=== PATIENT | female | born 1940 | race Caucasian/White ===

== ENCOUNTER 2017-06-25 08:32 | Inpatient (IN) ==
[2017-06-19 11:52] LABS: Basophils # (Auto) 0 K/mcL (0.0-0.3); Basophils % (Auto) 0.2 % (0.0-2.0); Eosinophils # (Auto) 0.3 K/mcL (0.0-0.7); Eosinophils % (Auto) 2.5 % (0.0-7.0); Granulocytes % (Auto) 89.6 % (38.0-78.0); Lymphocytes # (Auto) 0.6 K/mcL (1.5-4.8); Lymphocytes % (Auto) 4.5 % (15.5-49.0); Mean Cell Volume 94.1 fL (80.0-100.0); Mean Corpuscular HGB Conc 33.8 g/dL (31.0-36.0); Mean Corpuscular Hemoglobin 31.9 pg (26.0-34.0); Monocytes # (Auto) 0.4 K/mcL (0.1-0.9); Monocytes % (Auto) 3.2 % (1.0-12.0); Platelet Count 361 K/mcL (140-440); RBC 3.84 M/mcL (4.00-5.20); Red Cell Distribution Width 12.6 % (11.5-14.5)
[2017-06-19 11:57] LABS: Blood Urea Nitrogen 46 mg/dl (8-23)
[2017-06-19 12:11] LABS: Appearance,Urine HAZY; Bacteria,Urine FEW /hpf (0); Bilirubin,Urine NEG (NEG); Color,Urine YELLOW; Glucose,Urine (UA) NEGATIVE (NEG); Leukocyte Esterase,Urine 500 /uL (NEG); Mucus,Urine FEW /hpf (0); Other Casts,Urine FEW /lpf (0); Protein,Urine NEG (NEG); Specific Gravity,Urine 1.015 (1.000-1.035); Urine Blood NEG mg/dL (<0.03); Urine Hyaline Cast 2 /lpf (0-2); Urine RBC 1 /hpf (0-1); Urine Squamous Epithelial Cell 13 /hpf (0-4); Urine Transitional Epi Cells 1 /hpf (0-2); Urine WBC 10 /hpf (0-4); Urobilinogen,Urine NEG (NEG)
[~2017-06-25 08:32] MED LIST: CELECOXIB 200 MG CAPSULE PO SCH; PREGABALIN 75 MG CAPSULE PO SCH; ceFAZolin 1 GM VIAL IV SCH; oxyCODONE 10 MG TAB.ER.12H PO SCH
[2017-06-25] MEDS ORDERED: HEPARIN 20,000 UNIT/ML VIAL IR ONE (09:49)
[2017-06-25 10:59] LABS: Appearance,Urine CLEAR; Bilirubin,Urine NEG (NEG); Color,Urine YELLOW; Glucose,Urine (UA) NEGATIVE (NEG); Leukocyte Esterase,Urine NEG /uL (NEG); Protein,Urine NEG (NEG); Specific Gravity,Urine 1.015 (1.000-1.035); Urine Blood NEG mg/dL (<0.03); Urobilinogen,Urine NEG (NEG)
[2017-06-25] MEDS ORDERED: TRANEXAMIC ACID 1,000 MG/10 ML VIAL IV ONE ×2 (11:20→12:40)
[2017-06-25] MEDS ORDERED: PHENYLEPHRINE 10 MG/ML VIAL IV ONE (11:20)
[2017-06-25] MEDS ORDERED: PROPOFOL 200 MG/20 ML VIAL IV ONE (11:20)
[2017-06-25] MEDS ORDERED: LIDOCAINE HCL/PF 100 MG/5 ML SYRINGE IV ONE (11:20)
[2017-06-25] MEDS ORDERED: ONDANSETRON 4 MG/2 ML VIAL IV ONE (11:20)
[2017-06-25] MEDS ORDERED: ePHEDrine 50 MG/ML AMPUL IV ONE (11:20)
[2017-06-25] MEDS ORDERED: DEXAMETHASONE 10 MG/ML VIAL IV ONE (11:20)
[2017-06-25] MEDS ORDERED: GLYCOPYRROLATE 0.2 MG/ML VIAL IV ONE (11:20)
[2017-06-25] MEDS ORDERED: MIDAZOLAM 5 MG/5 ML VIAL IV ONE (11:20)
[2017-06-25] MEDS ORDERED: fentaNYL 100 MCG/2 ML VIAL IV ONE (11:20)
[2017-06-25] MEDS ORDERED: MEPERIDINE 50 MG/ML INJECTION IV PRN (12:18)
[2017-06-25] MEDS ORDERED: diphenhydrAMINE 50 MG/ML VIAL IV PRN (12:18)
[2017-06-25] MEDS ORDERED: ONDANSETRON 4 MG/2 ML VIAL IV PRN ×2 (12:18→12:40)
[2017-06-25] MEDS ORDERED: ePHEDrine 50 MG/ML AMPUL IV PRN (12:18)
[2017-06-25] MEDS ORDERED: METHOCARBAMOL 1,000 MG/10 ML VIAL IV PRN (12:18)
[2017-06-25] MEDS ORDERED: ACETAMINOPHEN 1,000 MG/100 ML BOTTLE IV ONE (12:18)
[2017-06-25] MEDS ORDERED: ATROPINE SULFATE 0.4 MG/ML VIAL IV PRN (12:18)
[2017-06-25] MEDS ORDERED: METOPROLOL TARTRATE 5 MG/5 ML VIAL IV PRN (12:18)
[2017-06-25] MEDS ORDERED: IPRATROPIUM/ALBUTEROL 3 ML AMPUL.NEB NEB PRN (12:18)
[2017-06-25] MEDS ORDERED: NALOXONE HCL 0.4 MG/ML VIAL IV PRN (12:18)
[2017-06-25] MEDS ORDERED: PROMETHAZINE 25 MG/ML VIAL IV PRN (12:18)
[2017-06-25] MEDS ORDERED: HYDROmorphone 2 MG/ML VIAL IV PRN (12:18)
[2017-06-25] MEDS ORDERED: FLUMAZENIL 0.1 MG/ML ML IV PRN (12:18)
[2017-06-25] MEDS ORDERED: LACTATED RINGERS 1,000 ML IV SCH (12:30)
[2017-06-25] MEDS ORDERED: FLEETS ADULT ENEMA PR PRN (12:40)
[2017-06-25] MEDS ORDERED: MAGNESIUM HYDROXIDE 30 ML ORAL.SUSP PO PRN (12:40)
[2017-06-25] MEDS ORDERED: POLYETHYLENE GLYCOL 3350 17 GM PACKET PO PRN (12:40)
[2017-06-25] MEDS ORDERED: BENZOCAINE/MENTHOL 1 LOZENGE PO PRN (12:40)
[2017-06-25] MEDS ORDERED: BISACODYL 10 MG SUPP.RECT PR PRN (12:40)
--- NOTE | 2017-06-25 12:40 | Brief Operative Note ---
Date of procedure: 06/25/17 Pre-op diagnosis: R hip DJD Post-op diagnosis: same Procedure: Right anterior total hip arthroplasty Grafts/Implants: Yes (Depuy Actis 8 std femoral stem, +1.5 36 delta head, 52 pinnacle cup, neutra) Anesthesia: spinal, GLMA Findings: arthritis Complications: none Surgeon: Rohith Lopez Channel Marketing Specialist: Bryant Power Estimated blood loss (cc): 100 Specimens Removed/Pathology: none sent Condition: stable Disposition: PACU
[2017-06-25] MEDS ORDERED: METHOCARBAMOL 750 MG TABLET PO PRN (12:44)
[2017-06-25] MEDS ORDERED: LACTULOSE 20 GM/30 ML ORAL.SOL PO PRN ×2 (12:44→13:00)
[2017-06-25] MEDS: fentaNYL 100 MCG/2 ML VIAL IV PRN ×4 (13:28→13:42)
--- NOTE | 2017-06-25 13:38 | XRay Report ---
CLINICAL INFORMATION: Reason for Exam:Post-op Total Hip COMPARISON: None. FINDINGS: Right total hip prostheses is anatomically aligned. No osseous abnormality. There is downward tilt of the right hemipelvis. Both SI and left hip joint showing minimal degenerative change. Moderate L4-5 and L5-S1 degenerative disc disease. IMPRESSION: Right hip prostheses in anatomic alignment. Other chronic findings as described Interpreted and Authenticated by: Pankaj Macedo 06/25/17
[2017-06-25] MEDS: 0.9 % SODIUM CHLORIDE 1,000 ML IV SCH ×2 (14:10→23:03)
[2017-06-25] MEDS: KETOROLAC 15 MG/ML VIAL IV PRN (14:26)
[2017-06-25] MEDS: oxyCODONE/APAP 5/325MG TABLET PO PRN ×3 (14:55→20:25)
[2017-06-25] MEDS: 0.9 % SODIUM CHLORIDE 10 ML SYRINGE IV SCH ×2 (15:53→23:02)
--- NOTE | 2017-06-25 18:02 | XRay Report ---
CLINICAL INFORMATION: Reason for Exam:RIGHT ANTERIOR TOTAL HIP COMPARISON: None. FINDINGS: Multiple digital images show right total hip prostheses anatomically aligned. No osseous abnormality. IMPRESSION: Right total hip prostheses in anatomic alignment Interpreted and Authenticated by: Pankaj Macedo 06/25/17
[2017-06-25] MEDS: ceFAZolin 1 GM VIAL IV SCH (20:27)
[2017-06-25] MEDS ORDERED: SENNOSIDES 1 TABLET PO SCH (21:00)
[2017-06-25] MEDS ORDERED: AMITRIPTYLINE 10 MG TABLET PO SCH (21:00)
[2017-06-25] MEDS: ASPIRIN 325 MG ENTERIC COATED TABLET PO SCH (23:01)
[2017-06-25] MEDS: DOCUSATE SODIUM 100 MG CAPSULE PO SCH (23:01)
[2017-06-25] MEDS: FLUTICASONE PROPIONATE SPRAY.NAS NS SCH (23:02)
[2017-06-26] MEDS: 0.9 % SODIUM CHLORIDE 1,000 ML IV SCH ×2 (00:07→09:12)
[2017-06-26] MEDS: ceFAZolin 1 GM VIAL IV SCH (03:14)
[2017-06-26] MEDS: 0.9 % SODIUM CHLORIDE 10 ML SYRINGE IV SCH (05:54)
[2017-06-26] MEDS: oxyCODONE/APAP 5/325MG TABLET PO PRN (07:04)
[2017-06-26] MEDS ORDERED: LEVOTHYROXINE 50 MCG TABLET PO SCH (07:30)
--- NOTE | 2017-06-26 07:50 | Discharge Summary ---
Providers - Providers Patient information: Note initiated : 06/26/17 at 7:48 am Service Date, if different from initiated Date: [] Patient: Jackie Rosas 76 y/o F admitted on 06/25/17 for Right Total Hip Arthroplasty. Chief Complaint: [] Discharge date: 06/26/17 Hospitalization Hospital course: Pt was admitted for a R total hip arthroplasty. Pt was admitted on the day of the procedure and spent one night on the floor prior to discharge for IV abx, IV pain meds and PT. Pt will attend out-pt PT. Will f/u at [facility] in 2 weeks. Will use ASA for DVT prophylaxis. Discharge diagnosis: R hip OA Exam - Exam Clean and dry: Yes Weight bearing status: as tolerated Ortho Discharge - [facility] - Patient Instructions Diet: Regular Diet Activity: activity as tolerated, weight bearing as tolerated Total Hip Protocol: Follow activity instructions as provided by Physical Therapy. Dressing Care: May shower in 2 days - Follow Up Plan Disposition: Home, Self-Care Prognosis: Good Rehab Potential: Good Overall status at discharge: patient is progressing back to baseline - Orders For Discharge Prescriptions: Aspirin [Ecotrin] 325 mg PO BID #90 tab.ec Pending Studies Resuscitation Status Full Code Diet Regular Diet Start FriJun 25 124 Amitriptyline HCl (Elavil) 20 mg PO HS [facility] Last Admin: 06/25/17 23:01 Dose: 20 mg Aspirin (Ecotrin) 325 mg PO BID [facility] Last Admin: 06/25/17 23:01 Dose: 325 mg Docusate Sodium (Colace) 100 mg PO BID [facility] Last Admin: 06/25/17 23:01 Dose: Not Given Fluticasone Propionate (Flonase) 1 spray NS BID [facility] Last Admin: 06/25/17 23:02 Dose: Not Given Sodium Chloride (Sodium Chloride 0.9%) 1,000 mls @ 100 mls/hr IV .Q10H [facility] Last Admin: 06/26/17 00:07 Dose: 100 mls/hr Infusion: 06/26/17 00:06 Dose: 100 mls/hr Admin: 06/25/17 23:03 Dose: Not Given Admin: 06/25/17 14:10 Dose: 100 mls/hr Ketorolac Tromethamine (Toradol) 15 mg IV Q6HP PRN PRN Reason: Pain Stop: 06/27/17 12:42 Last Admin: 06/25/17 14:26 Dose: 15 mg Levothyroxine Sodium (Synthroid) 50 mcg PO QAMAC [facility] Last Admin: 06/26/17 07:42 Dose: 50 mcg Oxycodone/Acetaminophen (Percocet 5-325 Mg) 0 tab PO Q4HP PRN PRN Reason: PAIN LEVEL 3-6 Last Admin: 06/26/17 07:04 Dose: 1 tab Admin: 06/25/17 20:25 Dose: 2 tab Admin: 06/25/17 15:51 Dose: 1 tab Admin: 06/25/17 14:55 Dose: 1 tab Senna (Senokot) 2 tab PO HS [facility] Last Admin: 06/25/17 23:01 Dose: 1 tab Sodium Chloride (Saline Flush) 10 ml IV Q8 [facility] Last Admin: 06/26/17 05:54 Dose: Not Given Admin: 06/25/17 23:02 Dose: Not Given Admin: 06/25/17 15:53 Dose: 10 ml Shift Summary 06/26/17 04:55 Shift Summary by Kary Sr A&Ox4. Hx of HTN, dizziness, arthritis, chr back pain. Dressing to R hip CDI. Gets up with 1 assist, FWW, gait belt. Voids per BR. Voided 150ml at 0345 with PVR of 398ml. Ambulated 200ft in the halls tonight. Pain controlled with 2 tab percocet x1 and ice. Refused her colace last night and only wanted 1 tab of senokot because she has had issues with diarrhea and bowel incontinence in the past. IV in LFA with NS @ 100. VSS on RA. AV boots on while in bed. Pleasant and cooperative with cares. Calls appropriately. Initialized on 06/26/17 04:55 - END OF NOTE
[2017-06-26] MEDS: ASPIRIN 325 MG ENTERIC COATED TABLET PO SCH (08:57)
[2017-06-26] MEDS: DOCUSATE SODIUM 100 MG CAPSULE PO SCH (08:58)
[2017-06-26] MEDS ORDERED: LOSARTAN 50 MG TABLET PO SCH (09:00)
[2017-06-26] MEDS ORDERED: DOCUSATE SODIUM 100 MG CAPSULE PO SCH (09:00)
[2017-06-26] MEDS ORDERED: CALCIUM W/VIT D3 500 MG TABLET PO SCH (09:00)
[2017-06-26] MEDS ORDERED: MULTIVIT,THER IRON,CA,FA & MIN 1 TABLET PO SCH (09:00)
[2017-06-26] MEDS ORDERED: ASCORBIC ACID 500 MG TABLET PO SCH (09:00)
[2017-06-26] MEDS ORDERED: SENNOSIDES 1 TABLET PO SCH (09:00)
[2017-06-26] MEDS ORDERED: METOPROLOL SUCCINATE 25 MG TAB.XL.24H PO SCH (09:00)
[2017-06-26] MEDS: KETOROLAC 15 MG/ML VIAL IV PRN (09:04)
--- NOTE | 2017-06-26 10:40 | Operative Note ---
DATE OF OPERATION: 06/25/2017 PREOPERATIVE DIAGNOSIS: Right hip severe osteoarthritis. POSTOPERATIVE DIAGNOSIS: Right hip severe osteoarthritis. PROCEDURE PERFORMED: Right anterior total hip arthroplasty placing a DePuy Actis size 8 standard offset femoral stem, a +1.5, 36 mm delta ceramic head ball, a 52 [place] cup and a neutral AltrX liner. SURGEON: Rohith Lopez MD TOOTH INSPECTOR: Tim Power PA-C ANESTHESIA: Spinal plus general. DRAINS: None. SPECIMENS: None. COMPLICATIONS: None. BLOOD LOSS: 150 mL POSTOPERATIVE CONDITION: Stable. INDICATIONS FOR SURGERY: This is a 76-year-old female who had longstanding worsening right hip pain. Radiographs showed severe [id number] osteoarthritis. FINDINGS AT SURGERY: As above. Post implantation showed good component position with relative equal leg length and offset. PROCEDURE IN DETAIL: The patient had been seen preoperatively. Informed consent had been obtained after discussion of risks and benefits of surgery. Risks including, but not limited to, bleeding, possibly requiring transfusion; infection, possibly requiring implant removal and prolonged IV antibiotics; injury to nerves, blood vessels other surrounding structures; anesthetic risks; incomplete or no resolution of symptoms; leg length discrepancy; dislocation; fracture; DVT and pulmonary embolus risks. She understood these risks and wished to proceed. Correct operative site was marked in preoperative holding. The patient received spinal anesthesia. She was then taken to the operating room and LMA general given. The right hip and groin were carefully prepped and draped in normal sterile fashion. A timeout was performed verifying patient name, operative site, and plan. Scalpel was used through skin and subcutaneous tissue through a standard anterior approach incision. Hemostasis was obtained with Bovie cautery and then we continued careful blunt dissection down onto the tensor fascia and then this was undermined circumferentially. IrriSept was irrigated and a ring retractor placed. Tensor fascia was incised in line with muscle fibers and then we carefully bluntly dissected medial to the muscle belly. Blunt cobra retractors were placed on the superior and inferior neck and circumflex vessels were coagulated and cut and vastus fascia split distally. We then performed an anterior capsulectomy and did capsule releases and then a corkscrew was placed in the femoral head. Osteotome was used under fluoro to identify our neck cut and then oscillating tip saw used to make our osteotomy. Femoral head was removed and the acetabulum exposed. Labrum was excised circumferentially as well as soft tissue from the floor. We reamed with the reamer up to 1 mm less before getting rim ream. We went ahead and opened a 52 [place] cup. We irrigated the acetabulum with IrriSept and after a minute pulse lavaged with saline, then the cup was impacted between 35 and 40 degrees of inclination and about 25 degrees of anteversion. We got good pressfit; however, there was what looked like incomplete seating of the cup, so we went ahead and drilled and placed a screw in the posterior superior quadrant. We got excellent screw purchase and then this did close down the space even better. A center hole cover was placed and a neutral AltrX liner was opened and carefully impacted. Traction was removed from the leg. It was then extended and externally rotated and adducted. Capsule releases were performed and then the femur was repaired broaching up to a size 8 standard trial, neck was placed with a +1, 36 head. Hip was reduced. AP pelvis was taken to verify rotation and then AP of the nonoperative and operative hips were taken and overlaid. Our leg lengths and offset looked good, so we went ahead and opened the 8 standard offset stem. The trial was removed. We irrigated the femoral canal with IrriSept and after a minute we pulse lavaged with saline and then impacted the stem. It seated fully on our neck cut, so we went ahead and opened a 36 +1.5 head ball. The stem was carefully cleaned and dried and the head ball briskly impacted. The hip was reduced without excessive tension. Final form images were taken and saved. We irrigated with IrriSept and after a minute pulse lavaged and then #1 Vicryl running stitches used to close the fascia. Another IrriSept irrigation was done and after a minute another pulse lavage, and then 2-0 Monocryl for subcutaneous and eduardo for skin. Xeroform sterile dressings were applied. The patient was awakened, extubated, and transferred to recovery in stable condition. LANETTE:arvind Job ID: [id number] Doc ID: [id number] Rohith Lopez MD
[2017-06-26] MEDS: FLUTICASONE PROPIONATE SPRAY.NAS NS SCH (11:26)
== END 2017-06-26 11:07 | disposition home or self-care (01) | DRG 470 ==
LOC: MEDSUR 08:32
PROVIDERS: ADMIT Orthopaedic Surgery; ATTEND Orthopaedic Surgery